=== PATIENT | female | born 2000 ===

== ENCOUNTER → 2022-02-09 | Outpatient (CLI) | payer BC | END | disposition home or self-care (01) | LOC: LAB 12:00 → LAB SHORT 12:00 | PROVIDERS: Registered Nurse Community Health | DX: Z12.4 Encounter for screening for malignant neoplasm of cervix (principal) | CPT/HCPCS: G0123 ==

== ENCOUNTER → 2022-08-04 | Outpatient (CLI) | payer BC | END | disposition home or self-care (01) | LOC: LAB SHORT 08:40 → LAB 08:40 | DX: R30.0 Dysuria (principal) | CPT/HCPCS: 87077; 87086; 87186 ==